=== PATIENT | female | born 1955 | race Caucasian/White ===

== ENCOUNTER → 2018-06-10 | Outpatient (CLI) | payer MEDICARE | END | disposition home or self-care (01) | LOC: LABWHC1 15:57 | PROVIDERS: ATTEND Internal Medicine | DX: E83.52 Hypercalcemia (principal) | CPT/HCPCS: 36415; 82330; 83970 ==

== ENCOUNTER → 2019-08-18 | Outpatient (CLI) | payer MEDICARE ==
[2019-08-18 10:19] LABS: Basophils % (A) 1 %; Eosinophils # (A) 0.3 k/uL (0-0.7); Eosinophils % (A) 6 %; HCT 40.8 % (34.0-46.0); HGB 13.2 gm/dL (11.4-16.0); Lymphocytes # (A) 2.3 k/uL (1.0-4.8); Lymphocytes % (A) 49 %; MCH 28.8 pg (25.0-35.0); MCHC 32.4 g/dL (31.0-37.0); MCV 88.8 fL (80.0-100.0); Mean Platelet Volume 7.9; Monocytes # (A) 0.2 k/uL (0-1.0); Monocytes % (A) 5 %; Neutrophils # (A) 1.7 k/uL (1.3-7.7); Neutrophils % (A) 36 %; Platelet Count 216 k/uL (150-450); RDW 12.9 % (11.5-15.5); WBC 4.6 k/uL (3.8-10.6)
[2019-08-18 11:39] LABS: Ionized Calcium 5.6 mg/dL (4.5-5.3)
[2019-08-18 16:02] LABS: African American GFR (CKD) 110.1 (60.0-200.0); Albumin 4.4 g/dL (3.80-4.90); Albumin/Globulin Ratio 2.1 (1.60-3.17); Anion Gap 8.9 mmol/L (4.00-12.00); BUN/Creat Ratio 23.33 Ratio (12.00-20.00); Calcium 10.6 mg/dL (8.7-10.3); Carbon Dioxide 24.1 mmol/L (21.6-31.8); Chol/HDL Ratio 3.23; Globulin 2.1 g/dL (1.6-3.3); LDL Cholesterol,Calculated 157.2 mg/dL (0.0-131.0); Potassium 4.2 mmol/L (3.5-5.5); Total Bilirubin 0.9 mg/dL (0.2-1.2); Total Protein 6.5 g/dL (6.2-8.2); VLDL Calculation 14.8 mg/dL (5.00-40.00)
== END | disposition home or self-care (01) ==
LOC: LABWHC1 09:08
PROVIDERS: ATTEND Internal Medicine
DX: Z00.01 Encounter for general adult medical examination with abnormal findings (principal); E78.00 Pure hypercholesterolemia, unspecified; E55.9 Vitamin D deficiency, unspecified
CPT/HCPCS: 36415; 80053; 80061; 82330; 83970; 85025

== ENCOUNTER → 2020-08-10 | Outpatient (CLI) | payer MEDICARE ==
--- NOTE | 2020-08-10 15:18 | US ---
EXAMINATION TYPE: US groin LT DATE OF EXAM: 08/10/2020 COMPARISON: NONE CLINICAL HISTORY: R59.0 Localized enlarged lymph nodes. Patient feels lump left labia. Patient states the lump has gone done considerately and is very small right now. Scanning was performed directly over palp as pointed out by patient, no definite abnormali ty noted. IMPRESSION: 1. Ultrasound negative over the previous palpable region.
== END | disposition home or self-care (01) ==
LOC: RADUSWWP 14:07
PROVIDERS: ATTEND Internal Medicine
DX: R59.0 Localized enlarged lymph nodes (principal)

== ENCOUNTER → 2021-04-02 | Outpatient (CLI) | payer MEDICARE ==
--- NOTE | 2021-04-02 14:39 | BD ---
EXAMINATION TYPE: Axial Bone Density DATE OF EXAM: 04/02/2021 COMPARISON: NONE CLINICAL HISTORY: Postmenopausal female Height: 65 IN Weight: 131 LBS FRAX RISK QUESTIONS: Secondary Osteoporosis: 3. Menopause before 45: PARTIAL AGE 41 RISK FACTORS HISTORY OF: Active: YES Postmenopausal woman: PART AGE 41 MEDICATIONS: Additional Medications: VIT D, SLEEPING PILL EXAM MEASUREMENTS: Bone mineral densitometry was performed using the [employer] System. Bone mineral density as measured about the Lumbar spine is: ----- L1-L4(G/cm2): 1.064 T Score Values are as follows: ----- L2: -1.4 ----- L3: 0.0 ----- L4: -0.6 ----- L1-L4: -1.0 Bone mineral density BASELINE Bone mineral density about the R hip (g/cm2): 0.748 Bone mineral density about the L hip (g/cm2): 0.760 T Score values are as follows: -----R Neck: -2.1 -----L Neck: -2.0 -----R Total: -2.1 -----L Total: -1.8 Bone mineral density BASELINE IMPRESSION: Osteoporosis (T Score less than -2.5). There is increased fracture risk and therapy is usually indicated based on age. Re-Screen 1-2 years. NOTE: T-SCORE=SD OF THE YOUNG ADULT MEAN.
== END | disposition home or self-care (01) ==
LOC: RADBDWWP 12:44
PROVIDERS: ATTEND Internal Medicine
DX: Z13.820 Encounter for screening for osteoporosis (principal); M81.0 Age-related osteoporosis without current pathological fracture; Z78.0 Asymptomatic menopausal state
CPT/HCPCS: 77080

== ENCOUNTER → 2022-12-03 | Outpatient (CLI) | payer OTHER ==
--- NOTE | 2022-12-03 13:59 | XR ---
EXAMINATION TYPE: XR chest 2V DATE OF EXAM: 12/03/2022 COMPARISON: NONE HISTORY: Shortness of breath TECHNIQUE: Frontal and lateral views of the chest are obtained. FINDINGS: Scattered senescent parenchymal changes noted. Hyperinflation compatible with COPD. No evidence for infiltrate. No evidence for atelectasis. Heart size is stable. Mediastinal structures are stable and grossly unremarkable. No evidence for hilar prominence. Degenerative changes dorsal spine. IMPRESSION: 1. No evidence for acute pulmonary disease.
== END | disposition home or self-care (01) ==
LOC: RADXRMAIN 13:27
PROVIDERS: ATTEND Allergy & Immunology
DX: R06.02 Shortness of breath (principal); R05.9 Cough, unspecified
CPT/HCPCS: 71046

== ENCOUNTER → 2023-02-03 | Outpatient (CLI) | payer MEDICARE, OTHER ==
--- NOTE | 2023-02-04 09:38 | MM ---
Reason for Exam: Screening (asymptomatic). Last mammogram was performed 14 year(s) and 10 month(s) ago. Patient History: Menarche at age 12. First Full-Term at age 25. Hysterectomy at age 43. Postmenopausal. Patient has history of breast feeding. 06/29/2000, Cyst Aspiration on the Left side. Risk Values: Citlalli 5 year model risk: 1.7%. NCI Lifetime model risk: 5.4%. Prior Study Comparison: 01/08/2007 Bilateral Screening Mammogram, [facility]. 01/13/2007 Left Diagnostic Mammogram, [facility]. 04/11/2008 Bilateral Screening Mammogram, [facility]. Tissue Density: The breast tissue is heterogeneously dense. This may lower the sensitivity of mammography. Findings: Analyzed By CAD. There is no suspicious group of microcalcifications or new suspicious mass in either breast. Overall Assessment: Benign, BI-RAD 2 Management: Screening Mammogram of both breasts in 1 year. . Patient should continue monthly self-breast exams. A clinical breast exam by your physician is recommended on an annual basis. This exam should not preclude additional follow-up of suspicious palpable abnormalities. Note on Citlalli scores and lifetime risk: 1. A Citlalli score greater than 3% is considered moderate risk. If this is the case, consider specialist referral to assess eligibility for a risk reducing agent. 2. If overall lifetime risk for the development of breast cancer is 20% or higher, the patient may qualify for future screening with alternating mammogram and breast MRI. Electronically signed and approved by: Shelton Weller M.D. Radiologis
== END | disposition home or self-care (01) ==
LOC: RADMAMWWP 13:44
PROVIDERS: ATTEND Internal Medicine
DX: Z12.31 Encounter for screening mammogram for malignant neoplasm of breast (principal); Z78.0 Asymptomatic menopausal state
CPT/HCPCS: 77063; 77067

== ENCOUNTER → 2024-03-10 | Outpatient (CLI) | payer MEDICARE | END | disposition home or self-care (01) | LOC: LABWHC1 11:13 | PROVIDERS: ATTEND Internal Medicine | DX: E21.0 Primary hyperparathyroidism (principal) | CPT/HCPCS: 36415; 82330 ==

== ENCOUNTER 2024-03-16 10:33 | Day surgery (SDC) | payer MEDICARE ==
[2024-03-14 13:50] VITALS: BMI 22.3
[2024-03-16] MEDS: IV FLUID CONTINUATION 1,000 ML IV ONE (11:46)
[2024-03-16] MEDS: LACTATED RINGERS 1,000 ML IV SCH (11:47)
[2024-03-16] MEDS: ONDANSETRON 4 MG/2 ML VIAL IVP STA (11:50)
[2024-03-16 12:00] VITALS: TEMP 96.8
[2024-03-16] MEDS ORDERED: PROPOFOL 10 MG/ML 20 ML VIAL IV ONE (12:46)
--- NOTE | 2024-03-16 13:05 | P.PCN ---
Date of Procedure: 03/16/24 Procedure(s) Performed: BRIEF HISTORY: Patient is a 69-year-old pleasant female scheduled for an elective colonoscopy as a part of screening for colon cancer/positive Cologuard PROCEDURE PERFORMED: Colonoscopy with snare polypectomy. PREOPERATIVE DIAGNOSIS: Screening for colon cancer/positive Cologuard. IV sedation per Anesthesia. PROCEDURE: After informed consent was obtained, the patient, was brought into the endoscopy unit. IV sedation was administered by Anesthesia under continuous monitoring. Digital rectal examination was normal. Initially the Olympus CF-160 flexible video colonoscope was then inserted in the rectum, gradually advanced into the cecum without any difficulty. Careful examination was performed as the scope was gradually being withdrawn. Ileocecal valve and the appendiceal orifice were visualized and appeared normal. Prep was excellent. Mucosa of the cecum, ascending colon, appeared normal. In the transverse colon there was a 4 mm and 5 mm sessile polyp removed by cold snare polypectomy. Iin the distal sigmoid colon there was a 4 mm polyp removed by cold snare polypectomy. Transverse colon, descending colon, sigmoid colon, and rectum appeared normal. Scattered sigmoid diverticulosis. Retroflexion was performed in the rectum and no lesions were seen. The patient tolerated the procedure well. IMPRESSION: 4 mm and 5 mm transverse colon polyp status post cold snare polypectomy 4 mm sigmoid colon polyp status post cold snare polypectomy Scattered sigmoid diverticulosis RECOMMENDATIONS: Findings of this examination were discussed with the patient as well as his family. He was advised to follow-up with the biopsy results. If the biopsy reveals adenoma she can have repeat colonoscopy in 5 years.
[2024-03-16 13:39] VITALS: BP 186/80; PULSE 60; RESP 18
== END 2024-03-16 13:51 | disposition home or self-care (01) ==
LOC: ORWHC2ENDO 10:33
PROVIDERS: ATTEND Internal Medicine Gastroenterology
DX: R19.5 Other fecal abnormalities
CPT/HCPCS: 45385; 88305